=== PATIENT | female | born 1985 | race African-American/Black ===

== ENCOUNTER 2022-04-09 10:13 | Emergency (ER) | payer SELFPAY | END 2022-04-09 11:00 | disposition home or self-care (01) | LOC: MADERS 10:13 | DX: J11.1 Influenza due to unidentified influenza virus with other respiratory manifestations (principal); I10 Essential (primary) hypertension | CPT/HCPCS: 99283 ==

== ENCOUNTER 2022-09-11 08:20 | Emergency (ER) | payer SELFPAY | END 2022-09-11 08:40 | disposition home or self-care (01) | LOC: MADERS 08:20 | DX: K05.10 Chronic gingivitis, plaque induced (principal); R59.1 Generalized enlarged lymph nodes; I10 Essential (primary) hypertension | CPT/HCPCS: 99282 ==